=== PATIENT | female | born 1975 | race Two or more races ===

== ENCOUNTER → 2024-12-13 | Outpatient (CLI) | payer BC, SELFPAY ==
--- NOTE | 2024-12-13 14:52 | XR_ITS ---
Examination: Abdomen sonogram, complete Date and time of exam: December 13, 2024 1505 hours INDICATIONS: Pelvic pain beginning 4 days ago as well as upper abdominal pain. Technique: Multiple real-time grayscale transabdominal sonographic images of the abdomen have been obtained. Findings: Normal gallbladder. Normal common bile duct 0.4 cm Pancreatic head 2.1 cm Aorta not enlarged. Liver 16.2 cm fatty infiltration Normal hepatopedal portal venous oh Patent IVC Right kidney 10.2 cm cortex 1.9 cm Left kidney 9.7 cm cortex 1.7 cm Moderate renal scar formation Spleen 10.0 cm IMPRESSION: Normal gallbladder Normal common bile duct Mild hepatomegaly fatty infiltration
--- NOTE | 2024-12-13 14:52 | XR_ITS ---
Examination: Transvaginal ultrasound of the pelvis, complete Technique: Transvaginal sonographic images pelvis performed using crespo scale imaging Exam date and time: December 13, 2024 1511 hours INDICATIONS: Pelvic pain beginning 4 days ago. FINDINGS: Uterus 8.8 cm uterine fundal area of fibroid degeneration 18 x 17 x 20 mm and uterine body area of fibroid degeneration 20 x 15 x 15 mm Endometrial stripe 0.8 cm Right ovary 2.4 cm arterial flow Left ovary 2.3 cm arterial flow IMPRESSION: Uterine areas of fibroid degeneration as above, recommend 6 month follow-up transvaginal pelvic sonography.
== END | disposition home or self-care (01) ==
LOC: CDIM 14:43
PROVIDERS: PCP Family Medicine; Referring Provider Nurse Practitioner Family; Visit Provider Nurse Practitioner Family
DX: K76.0 Fatty (change of) liver, not elsewhere classified (principal); D25.9 Leiomyoma of uterus, unspecified
CPT/HCPCS: 76700; 76830